=== PATIENT | female | born 2000 | race Caucasian/White ===

== ENCOUNTER → 2021-09-03 16:51 | Outpatient (BNVA) | payer SELFPAY | PROVIDERS: Visit Provider Registered Nurse Neonatal Intensive Care | DX: N39.0 Urinary tract infection, site not specified (principal) | CPT/HCPCS: 81000 ==

== ENCOUNTER → 2025-01-22 12:15 | Outpatient (BNVA) | payer MEDICAID, SELFPAY | PROVIDERS: Visit Provider Nurse Practitioner | DX: R10.9 Unspecified abdominal pain (principal) | CPT/HCPCS: 81000 ==

== ENCOUNTER → 2025-02-01 14:31 | Outpatient (BNVA) | payer MEDICAID, SELFPAY | PROVIDERS: PCP Nurse Practitioner Family; Visit Provider Student in an Organized Health Care Education/Training Program | DX: M67.442 Ganglion, left hand (principal) | CPT/HCPCS: 73130 ==

== ENCOUNTER 2025-03-06 11:41 | Day surgery (SDC) | payer MEDICAID, SELFPAY ==
[2025-03-06] VITALS (12 sets, daily range): BP systolic 114–122; BP diastolic 68–97; PULSE 71–105; RESP 16–20; TEMP 36.4–36.8; O2SAT 97–100; BMI 23.6
[2025-03-06] MEDS: acetaminophen 1,000 MG/100 ML PIGGYBACK 400 MG IV (12:45)
[2025-03-06] MEDS: scopolamine 1 mg PATCH 1 PATCH TRANSDERMA (12:48)
[2025-03-06] MEDS: sodium chloride 0.9% 1,000 ML 30 ML IV (12:49)
--- NOTE | 2025-03-06 12:58 | W.PM.OPSFHP ---
Same Day Surgery H&P Indication for Procedure/HPI DATE OF PROCEDURE: March 06, 2025 CHIEF COMPLAINT/INDICATIONFOR SURGICAL PROCEDURE: Left thumb cyst PREOP DIAGNOSIS: Left thumb cyst PLANNED PROCEDURE: Operation Date: 03/06/25 14:10 Proposed Procedures p LEFT Thumb Cyst Excision(Left) - Shreyas Hernandez, DO Medications/Allergies* Home Medications ?Medication ?Instructions ?Recorded ?Confirmed ?Type norgestimate-ethinyl estradiol 1 tab PO DAILY 01/22/25 03/02/25 History 0.18mg/0.215mg/0.25mg-0.035mg(28)tablet (Tri-Sprintec (28)) tirzepatide 2.5 mg/0.5 mL 2.5 mg SUBCUT DIRECTED 03/06/25 03/06/25 History subcutaneous pen injector (Silverio) Allergies/Adverse Reactions Allergy/AdvReac Type Severity Reaction Status Date / Time Sulfa (Sulfonamide Allergy nausea Verified 02/01/25 14:30 Antibiotics) Current Medications: Generic Name Dose Route Start Last Admin Trade Name Sandoval PRN Reason Stop Dose Admin Sodium Chloride 1,000 mls @ 30 mls/hr 03/06/25 12:00 03/06/25 12:49 Sodium Chloride 0.9% IV 03/07/25 11:59 30 mls/hr .Q24H PRIMO Administration Pertinent History/Comorbid Conditions* Social History Smoking and tobacco/nicotine status: never used tobacco/nicotine Pertinent Exam Findings alert, oriented x 3, operative site marked and procedure specific exam findings Please refer to detailed orthopedic examination on 02/01/2025 listed below: Examination of left thumb: Examination left thumb demonstrates patient has a centralized palpable cyst over the eponychial tissue with slight indentation on the left thumb nail plate no signs of infection this is soft and mobile. Patient has full range of motion of the left thumb no evidence of any deformity of the joints, no tenderness palpation over the A1 risa and no triggering noted. Patient has no significant tenderness palpation over the cyst. Recommendations Risks and benefits of procedure reviewed and Patient/family agree to proceed Surgery/Procedure today Other Plans: Plan to proceed to the OR today for left thumb cyst excision. Patient understands the ins outs procedure the risk the benefits complication alternatives with surgery and through shared decision making patient like to proceed with surgical intervention. All questions been answered at this time. Will proceed with surgical intervention today. Coding Level of Care Code Acute Code for Chg Fwd
[2025-03-06] MEDS: ketorolac 30 mg/mL INJ IVP (13:04)
[2025-03-06] MEDS: ceFAZolin 2,000 MG in sodium chloride 0.9% (plus) 50 ML 100 MG IV (13:05)
[2025-03-06] MEDS: ROPivacaine 0.5% SDV 30 mL 150 MG INJECTION (13:52)
[2025-03-06] MEDS: lidocaine 1% 10 ML INJ XX (13:59)
--- NOTE | 2025-03-06 14:08 | W.PM.BPON ---
Date of Procedure: 03/06/2025 Surgeon: Shreyas Hernandez DO Negative Turner(s): None Procedure(s) performed: Left thumb cyst excision (0.5 x 0.5 x 0.5 cm) Findings of the procedure(s): Patient underwent procedure as planned without issues or complications. Taken back to recovery in stable condition. Estimated blood loss: 2 mL Specimen(s) removed: Left thumb cyst excised and sent for specimen Post-operative diagnosis: Left thumb cyst
--- NOTE | 2025-03-06 14:13 | PM.OP ---
Operative Report Date of procedure: March 06, 2025 Surgeon: Shreyas Hernandez DO Procedure: Preoperative diagnosis: Left thumb cyst Post-op diagnosis: Left?Thumb?cyst Procedure done: Left Thumb cyst excision (0.5 x 0.5 x 0.5 cm) Surgeon: Shreyas Hernandez DO Estimated blood loss: 1 mL Tourniquet time 19 minutes?finger turnicot IV fluids: 700 mL Complications: None Findings: See operative report narrative Condition: stable Disposition: same day Brief History: Patient presents to the outpatient setting with findings consistent with a Left Thumb cyst.? She has been worked up in the outpatient setting and is failed conservative treatment approach.? Patient's failed conservative treatment. She wishes to proceed with surgical intervention.? We talked about the risk benefits complications and alternatives with surgical nonsurgical treatment options.? Understanding risk of surgery she agrees to proceed with a Left Thumb cyst excision.? All questions answered. Procedure: Patient was seen evaluated in the preoperative holding area.? Consent was reviewed and signed with patient.? Correct extremity was then marked. Plan for patient was for a digital block/local anesthetic. Patient was then taken back to the operative suite patient was placed in supine position and all bony prominences well-padded the patient was properly secured to the bed.? Armboard was applied to the Left upper extremity. This point time the Left upper extremity was then prepped and draped in standard orthopedic fashion.? A final timeout was performed.? Patient received appropriate preoperative antibiotics. Prior to proceeding with incision sites I then performed digital block of the Left Thumb under sterile aseptic technique Once appropriately under satisfactory local only anesthesia for digital block to the left thumb this was then tested and was appropriately anesthetized we proceeded with the procedure. Finger turnicot was used over the Left Thumb to exsanguinate the digit. ? Left Thumb finger was then identified as well as the cyst near directly over midline, right to the eponychium. IP joint on the midline aspect of the finger. Made incision just on the ulnar aspect of the cyst up into the extensor crease and then created an L-shaped incision to create a full-thickness skin flap to identify the??cyst.? Sharp scalpel excision and then switching to a Webster blade for meticulous dissection under loupe magnification identified a??mucous?cyst which was then subsequently excised.? The total size of this was 0.5 cm x 0.5 cm x 0.5 cm this subsequently was removed this did have a small stalk communicating approximately into the capsule this was then subsequently cauterized with bipolar electrocautery. There was no bony prominence or dorsal osteophytes noted. The extensor mechanism was kept intact. Care was to not injure patient's nail matrix as this did communicate directly on top of the nail matrix. Finger tourniquet was removed , wound was irrigated, hemostasis was maintained with bipolar electrocautery.? Next I closed the incision with interrupted nylon suture.? Incision sites were then dressed with Xeroform 4 x 4's Kerlix Lukas wrap and an Derek wrap and AlumaFoam thumb splint applied. Patient was then awakened from anesthesia and taken to PACU in stable condition. Disposition: Patient taken to PACU in stable condition recovering well.? Dressing on in place clean dry and intact.? Patient was receive appropriate discharge instruction as well as pain medication postoperatively.? Patient to follow-up with Ortho in the office in 2 weeks.? Patient understands and agrees with current plan.? All questions answered.
--- NOTE | 2025-03-06 14:26 | SUR.PHASEII ---
GOOD CAP REFILL SENSATION AND ROM OF LEFT HAND FINGERS.
== END 2025-03-06 14:45 | disposition home or self-care (01) ==
PROVIDERS: PCP Nurse Practitioner Family; Visit Provider Student in an Organized Health Care Education/Training Program
PROC: (CPT 26160; principal; 2025-03-06 14:05)
DX: D36.12 Benign neoplasm of peripheral nerves and autonomic nervous system, upper limb, including shoulder (principal)
CPT/HCPCS: 26160; 88304; J0131; J0690; J1885; J2795; J7030; J9999